=== PATIENT | female | born 2000 | race Hispanic/Latino ===

== ENCOUNTER 2024-12-23 15:49 | Emergency (ER) | payer SELFPAY ==
[2024-12-23] MEDS ORDERED: ONDANSETRON 4 MG/2 ML VIAL ONE (16:35)
[2024-12-23] MEDS ORDERED: NA CHLORIDE 0.9% 1,000 ML ONE (16:35)
[2024-12-23 16:38] LABS: Absolute Lymphocytes (CBC) 2.2 K/uL (0.7-4.9); Hematocrit 35.2 % (36.0-45.0); Hemoglobin 12.4 g/dL (12.0-15.0); MCH 31.3 pg (27.0-35.0); MCHC 35.2 g/dL (32.0-36.0); MCV 88.9 fL (80-100); MPV 8.2 fL (7.6-11.3); Nucleated RBC Absolute Count 0.0 (0-0); Nucleated Red Blood Cells % 0.1 % (0-0); RBC Red Blood Cell Count 3.96 M/uL (3.86-4.86); White Blood Count 8.40 thou/uL (4.3-10.9)
[2024-12-23 16:42] LABS: Urine Micro Reflex YN NO BILL MICROSCOPIC; Urine WBC Clump Rare /HPF (None Seen); Urine Yeast (Budding) Trace /HPF (None Seen)
[2024-12-23 16:55] LABS: ALT/SGPT 24.0 U/L (13-56); AST/SGOT 13.0 U/L (15-37); Albumin 3.9 g/dL (3.4-5.0); Albumin/Globulin Ratio 1.0 (1.1-1.8); Alkaline Phosphatase 53.0 U/L (45-117); Anion Gap 10.1 mEq/L (5.0-15.0); BUN Blood Urea Nitrogen 6.0 mg/dL (7-18); Globulin 3.8 g/dL (2.3-3.5); Glucose Level 88.0 mg/dL (74-106); Potassium 3.1 mEq/L (3.5-5.1)
--- NOTE | 2024-12-23 17:48 | ER ---
Nurse's Notes [facility] Name: Joy Hinson Age: 24 yrs Sex: Female : 2000 Arrival Date: 12/23/2024 Time: 15:49 Bed 17 Private MD: Diagnosis: Hypokalemia;Threatened Presentation: 12/23 16:04 Chief complaint:. Coronavirus screen: At this time, the client does not indicate any jb4 symptoms associated with coronavirus-19. Ebola Screen: No symptoms or risks identified at this time. Initial Sepsis Screen: Does the patient meet any 2 criteria? No. Patient's initial sepsis screen is negative. Does the patient have a suspected source of infection? No. Patient's initial sepsis screen is negative. Risk Assessment: Do you want to hurt yourself or someone else? Patient reports no desire to harm self or others. Onset of symptoms was December 23, 2024. Transition of care: patient was not received from another setting of care. 16:04 Method Of Arrival: Ambulatory jb4 16:04 Acuity: YUDITH 3 jb4 16:05 Chief complaint: Patient states: I am having lower abdominal pain that radiates to my jb4 back. Triage Assessment: 17:58 General: Appears in no apparent distress. Behavior is calm, cooperative, appropriate bp for age. Pain: Complains of pain in suprapubic area. EENT: No deficits noted. Neuro: No deficits noted. Cardiovascular: Rhythm is sinus rhythm. Respiratory: No deficits noted. GI: Abdomen is non-distended. : No signs and/or symptoms were reported regarding the genitourinary system. Derm: No deficits noted. Musculoskeletal: No deficits noted. [employer]: 16:04 Verified jb4 16:07 2, Full Term 0, Premature 0, 1, Living 0, LMP 09/02/2024, sw6 Verified, EDC 06/09/2025, Gestational age from LMP: 16 weeks 0 days 16:07 2, Full Term 0, Premature 0, 1, Living 0, LMP 09/02/2024, sw6 Verified, EDC 06/09/2025, Gestational age from LMP: 16 weeks 0 days Historical: - Allergies: 16:04 No Known Allergies; jb4 - PMHx: 16:05 None; jb4 - PSHx: 16:05 None; jb4 - Immunization history:: Adult Immunizations up to date. - Infectious Disease History:: Denies. - Social history:: Smoking status: Patient denies any tobacco usage or history of. Screenin:57 [facility] ED Fall Risk Assessment (Adult) History of falling in the last 3 months, bp including since admission No falls in past 3 months (0 pts) Confusion or Disorientation No (0 pts) Intoxicated or Sedated No (0 pts) Impaired Gait No (0 pts) Mobility Assist Device Used No (0 pt) Altered Elimination No (0 pt) Score/Fall Risk Level 0 - 2 = Low Risk Oriented to surroundings. Abuse screen: Denies threats or abuse. Denies injuries from another. Nutritional screening: No deficits noted. Tuberculosis screening: No symptoms or risk factors identified. Assessment: 16:05 General: SEE TRIAGE NOTE. bp 17:57 Reassessment: Patient appears in no apparent distress at this time. Patient is alert, bp oriented x 3, equal unlabored respirations, skin warm/dry/pink. Pain: Denies pain. GI: Bowel sounds present X 4 quads. Abd is soft X 4 quads. Vital Signs: 16:04 BP 130 / 96; Pulse 84; Resp 16; Temp 98.2(O); Pulse Ox 100% on R/A; Weight 52.62 kg; jb4 Height 5 ft. 5 in. ; 17:59 BP 115 / 69; Pulse 79; Resp 16; Pulse Ox 99% ; bp 16:04 Body Mass Index 19.30 (52.62 kg, 165.1 cm) jb4 ED Course: 15:55 Patient arrived in ED. gl 15:57 Elena Bass MD is Attending Physician. sw6 16:04 Triage completed. jb4 16:04 Arm band placed on right wrist. jb4 16:17 Maurice Biggs, RAFIA is Primary Nurse. bp 16:33 Inserted saline lock: 20 gauge in right antecubital area, using aseptic technique. kj2 Blood collected. Flushed with 10 mL NS. 17:57 Patient has correct armband on for positive identification. bp 17:57 No provider procedures requiring assistance completed. IV discontinued, intact, bp bleeding controlled, No redness/swelling at site. Pressure dressing applied. Administered Medications: 16:40 Drug: Ondansetron IVP 4 mg IVP once; over 2 minutes Route: IVP; Site: right antecubital;kj2 17:56 Follow up: Response: No adverse reaction bp 16:43 Drug: NS 0.9% IV 1000 ml IV at 1 bolus Per protocol; to be given as a bolus over 60 bp minutes Route: IV; Rate: 1 bolus; Site: right antecubital; 17:56 Follow up: IV Status: Completed infusion bp 17:56 Drug: Potassium Chloride PO 40 mEq PO once Route: PO; bp 17:56 Follow up: Response: No adverse reaction bp Medication: 17:57 VIS not applicable for this client. bp Outcome: 17:47 Discharge ordered by . sw6 17:57 Discharged to home ambulatory, with family, bp 17:57 Condition: stable 17:57 Discharge instructions given to patient, Instructed on discharge instructions, follow up and referral plans. Demonstrated understanding of instructions, follow-up care, 18:00 Patient left the ED. bp Signatures: Ronaldo Winston RN RN jb4 Maurice Biggs RN RN bp Elena Bass MD MD sw6 Rina Garzon RN RN kj2 Flores Francois, Reg Reg gl Corrections: (The following items were deleted from the chart) 16:12 16:04 BP 130 / 96; Pulse 84bpm; Resp 16bpm; Pulse Ox 100% RA; Temp 98.2F Oral; jb4 jb4
--- NOTE | 2024-12-23 17:48 | EDPHYS ---
Physician Documentation [facility] Name: Joy Hinson Age: 24 yrs Sex: Female : 2000 Arrival Date: 12/23/2024 Time: 15:49 Bed 17 Private MD: BEN Physician Elena Bass HPI: 12/23 16:07 This 24 yrs old Female presents to ER via Ambulatory with complaints of sw6 Abdominal Pain - X3 MONTHS , PREVIOUS MISCARRIAGE. 16:07 The patient presents to the emergency department with abdominal pain, of the suprapubic sw6 area, that started today. course: care: at a clinic, Leakage of Fluid: none appreciated, Ultrasound: the patient had an ultrasound, which was normal. Previous pregnancies: in previous pregnancies patient has had. Associated signs and symptoms: Pertinent positives: Pertinent negatives: dysuria, vaginal bleeding, vaginal discharge, vomiting. The patient presents from home for evaluation for pelvic pain that started today. She is currently with her last menstrual period being September 02 and she is a 2 para 0-0-1-0. She has seen an OB in the [place] area with this and has had an ultrasound with this . She has intermittent nausea but no vomiting. No vaginal bleeding or discharge. No medications taken for symptoms. She is on vitamins. No history of high blood pressure or diabetes. Here for evaluation.. [employer]: 16:04 Verified jb4 16:07 2, Full Term 0, Premature 0, 1, Living 0, LMP 09/02/2024, sw6 Verified, EDC 06/09/2025, Gestational age from LMP: 16 weeks 0 days 16:07 2, Full Term 0, Premature 0, 1, Living 0, LMP 09/02/2024, sw6 Verified, EDC 06/09/2025, Gestational age from LMP: 16 weeks 0 days Historical: - Allergies: 16:04 No Known Allergies; jb4 - PMHx: 16:05 None; jb4 - PSHx: 16:05 None; jb4 - Immunization history:: Adult Immunizations up to date. - Infectious Disease History:: Denies. - Social history:: Smoking status: Patient denies any tobacco usage or history of. ROS: 16:07 Constitutional: Negative for fever, chills, and weight loss, Cardiovascular: Negative sw6 for chest pain, palpitations, and edema, Respiratory: Negative for shortness of breath, cough, wheezing, and pleuritic chest pain, MS/Extremity: Negative for injury and deformity, 16:07 Abdomen/GI: Positive for nausea, Negative for vomiting, 16:07 : Positive for pelvic pain, 16:07 All other systems are negative, Exam: 16:07 Constitutional: This is a well developed, well nourished patient who is awake, alert, sw6 and in no acute distress. Neck: Trachea midline, no thyromegaly or masses palpated, and no cervical lymphadenopathy. Supple, full range of motion without nuchal rigidity, or vertebral point tenderness. No Meningismus. Chest/axilla: Normal chest wall appearance and motion. Nontender with no deformity. No lesions are appreciated. Cardiovascular: Regular rate and rhythm with a normal S1 and S2. No gallops, murmurs, or rubs. Normal PMI, no JVD. No pulse deficits. Respiratory: Lungs have equal breath sounds bilaterally, clear to auscultation and percussion. No rales, rhonchi or wheezes noted. No increased work of breathing, no retractions or nasal flaring. Abdomen/GI: Soft, non-tender, with normal bowel sounds. No distension or tympany. No guarding or rebound. No evidence of tenderness throughout. Back: No spinal tenderness. No costovertebral tenderness. Full range of motion. Neuro: Awake and alert, GCS 15, oriented to person, place, time, and situation. Cranial nerves II-XII grossly intact. Motor strength 5/5 in all extremities. Sensory grossly intact. Cerebellar exam normal. Normal gait. Psych: Awake, alert, with orientation to person, place and time. Behavior, mood, and affect are within normal limits. Vital Signs: 16:04 BP 130 / 96; Pulse 84; Resp 16; Temp 98.2(O); Pulse Ox 100% on R/A; Weight 52.62 kg; jb4 Height 5 ft. 5 in. ; 17:59 BP 115 / 69; Pulse 79; Resp 16; Pulse Ox 99% ; bp 16:04 Body Mass Index 19.30 (52.62 kg, 165.1 cm) jb4 Procedures: 16:44 Ultrasound: Type: OB, performed by the emergency department physician, A limited sw6 transabdominal ultrasound was performed at bedside for the indication of abdominal pain while . Findings included a single intrauterine with an estimated gestational age of 15 weeks and 5 days and heart tones of 154. There is no free fluid noted and adnexa are unremarkable.. MDM: 15:57 Medical Screening Exam initiated 16:07 Differential diagnosis: threatened Ab, UTI, dehydration. 17:45 Data reviewed: lab test result(s), CBC, electrolytes, urinalysis. Response to sw6 treatment: the patient's symptoms have markedly improved after treatment, the patient is now symptom free. ED course: The patient is doing well in the ER. Her laboratory studies show a low potassium level which was replaced here in the ER. Her urinalysis shows no infection. She is feeling better after the IV fluids given here in the ER and reports her pain has resolved. She remained stable here in the ER and is okay for discharge home with outpatient follow-up with her [employer] as scheduled this month.. 12/23 16: Order name: CBC with Diff; Complete Time: 17:43 12/23 17:43 Interpretation: Within normal limits. 12/23 16:07 Order name: CMP; Complete Time: 17:43 12/23 17:43 Interpretation: Normal except: K 3.1; Hypokalemia. 12/23 16:07 Order name: UA W/ Microscopic; Complete Time: 17:43 12/23 17:43 Interpretation: Within normal limits. 12/23 16:07 Order name: IV Saline Lock; Complete Time: 16:32 12/23 16:07 Order name: Labs collected and sent; Complete Time: 16:32 Administered Medications: 16:40 Drug: Ondansetron IVP 4 mg IVP once; over 2 minutes Route: IVP; Site: right antecubital;kj2 17:56 Follow up: Response: No adverse reaction bp 16:43 Drug: NS 0.9% IV 1000 ml IV at 1 bolus Per protocol; to be given as a bolus over 60 bp minutes Route: IV; Rate: 1 bolus; Site: right antecubital; 17:56 Follow up: IV Status: Completed infusion bp 17:56 Drug: Potassium Chloride PO 40 mEq PO once Route: PO; bp 17:56 Follow up: Response: No adverse reaction bp Disposition Summary: 12/23/24 17:47 Discharge Ordered Notes: Location: Home sw6 Problem: new sw6 Symptoms: have improved sw6 Condition: Stable sw6 Diagnosis - Hypokalemia sw6 - Threatened sw6 Followup: sw6 - With: Private Physician - When: 5 - 6 days - Reason: Continuance of care Discharge Instructions: - Discharge Summary Sheet sw6 - Threatened Miscarriage, [id number] sw6 - Hypokalemia sw6 Forms: - Medication Reconciliation Form sw6 - Antibiotic Education sw6 - Prescription Opioid Use sw6 - Patient Portal Instructions sw6 - Leadership Thank You Letter 6 Signatures: Dispatcher [employer] EDRonaldo Chen, RN RN jb4 Maurice Biggs RN RN bp Elena Bass MD MD sw6 Rina Garzon RN RN kj2 Corrections: (The following items were deleted from the chart) 16:07 16:07 CBC+H.LAB.BRZ ordered. EDMS EDMS 16:07 16:07 COMPREHENSIVE METABOLIC PANEL+C.LAB.BRZ ordered. EDMS EDMS 16:07 16:07 UA W/ Microscopic+U.LAB.BRZ ordered. EDMS EDMS
[2024-12-23] MEDS ORDERED: POTASSIUM CL SA 10 MEQ TAB PO ONE (17:53)
[2024-12-23 18:25] VITALS: TEMP 98.2
[2024-12-23 18:27] VITALS: BP 115/69; O2SAT 99
== END 2024-12-23 18:00 | disposition home or self-care (01) ==
LOC: ER 15:49
DX: O20.0 Threatened abortion (principal); E87.6 Hypokalemia
CPT/HCPCS: 36415; 80053; 81001; 85025; 96361; 96374; 99284; J2405; J7030